=== PATIENT | female | born 1930 | race Caucasian/White ===

== ENCOUNTER → 2021-04-03 | Day surgery (SDC) | payer MEDICARE, OTHER ==
[~2021-04-03] VITALS: Ht 160 cm; Wt 64.4 kg
[~2021-04-03] MED LIST: AMLODIPINE BESYL5 MG PO; DORZOLAMIDE-TIM10 ML OU; IRBESARTAN150 MG PO; LEVOTHYROXINE25 MCG PO
[2021-04-03 07:35] LABS: HCT 42.5 % (37.0-47.0); HGB 14.9 g/dl (12.5-16.0); MCH 31.5 pg (25.0-31.0); MCHC 35.1 g/dL (32.0-36.0); MCV 89.9 fL (78.0-100.0); MPV 9.5 fL (6.0-9.5); RBC 4.73 M/uL (4.20-5.40); RDW 12.6 % (11.5-14.0); WBC 6.5 K/uL (4.0-10.5)
[2021-04-03 07:52] LABS: ALBUMIN 3.6 g/dL (3.4-5.0); BILIRUBIN - TOTAL 0.6 mg/dL (0.2-1.0); CREATININE 0.56 mg/dL (0.51-0.95); GLOBULIN (CALCULATION) 3.2 g/dL; POTASSIUM 3.7 mmol/L (3.5-5.1); TOTAL PROTEIN 6.8 g/dL (6.4-8.2)
== END | disposition home or self-care (01) ==
LOC: FAS 06:45
PROVIDERS: Surgery
DX: R19.4 Change in bowel habit (principal); I10 Essential (primary) hypertension; Z96.649 Presence of unspecified artificial hip joint; Z88.0 Allergy status to penicillin; Z88.2 Allergy status to sulfonamides; Z88.8 Allergy status to other drugs, medicaments and biological substances
CPT/HCPCS: 36415; 80053; J7120